=== PATIENT | male | born 1995 | race Caucasian/White ===

== ENCOUNTER 2017-10-26 19:11 | Emergency (ER) | payer OTHER, SELFPAY ==
[2017-10-26 19:13] VITALS: BP 123/71; PULSE 112; RESP 15; TEMP 37.1; O2SAT 98; BMI 26.7
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
[2017-10-26] MEDS: Diphth,Pertuss(Acell),Tet Vac 0.5 ML Vial IM (19:47)
[2017-10-26] MEDS: HYDROcodone Bitartrate/Apap 5/325 Tablet PO (19:53)
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
[2017-10-26] MEDS: Bupivacaine Mpf 0.5% 30 ML VIAL INFILT (22:06)
[2017-10-26] MEDS: Clindamycin HCl 150 MG Capsule 300 MG PO (22:07)
[2017-10-26 22:10] VITALS: BP 133/67; PULSE 79; O2SAT 97
== END 2017-10-26 22:11 | disposition home or self-care (01) ==
LOC: ED 20:09
PROVIDERS: Emergency Provider Emergency Medicine; Family Provider Internal Medicine; PCP Internal Medicine
DX: S61.511A Laceration without foreign body of right wrist, initial encounter (principal); S61.212A Laceration without foreign body of right middle finger without damage to nail, initial encounter; S61.214A Laceration without foreign body of right ring finger without damage to nail, initial encounter; S61.001A Unspecified open wound of right thumb without damage to nail, initial encounter; Z23 Encounter for immunization; W22.8XXA Striking against or struck by other objects, initial encounter; Y93.89 Activity, other specified; Y92.89 Other specified places as the place of occurrence of the external cause; Y99.8 Other external cause status
CPT/HCPCS: 12002; 73110; 73130; 90715; 99283

== ENCOUNTER → 2017-10-29 13:39 | Outpatient (CLI) | payer OTHER, SELFPAY ==
--- NOTE | 2017-10-29 13:42 | US_ITS ---
STUDY: ULTRASOUND BREAST - RIGHT REASON FOR EXAM: Male, 21 years old. Palpable lump in the right breast. TECHNIQUE: Axial and longitudinal images of the RIGHT breast were performed with a high resolution ultrasound transducer. COMPARISON: None. FINDINGS: RIGHT Breast: The retroareolar region was examined by ultrasound. There is fibroglandular tissue. No solid or cystic mass lesion is seen. US/Breast Limited Unilateral IMPRESSION: Fibroglandular tissue suggestive of gynecomastia. ASSESSMENT CATEGORY: BIRADS Category 2: Benign. A letter regarding these results will be sent to the patient by the facility within 30 days. Electronically Signed: Ryan Cordova MD at 14:09 EDT Tel [phone], Service support ,
== END ==
PROVIDERS: Family Provider Internal Medicine; PCP Internal Medicine; Visit Provider Internal Medicine
DX: N63.10 Unspecified lump in the right breast, unspecified quadrant (principal)
CPT/HCPCS: 76642

== ENCOUNTER 2018-04-29 14:56 | Emergency (ER) | payer OTHER, SELFPAY ==
[2018-04-29 14:58] VITALS: BP 144/86; PULSE 98; RESP 18; TEMP 37.1; O2SAT 98; BMI 27.3
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
[2018-04-29 16:16] VITALS: PULSE 85; RESP 14; O2SAT 99
--- OUTSIDE RECORDS SUMMARY | 2018-06-24 22:08 | XMS RPT_ITS ---
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 EXPLORATION RIGHT WRIST LACERATION, REPAIR EXTENSOR CARPI ULNARIS (Right) - REG-BLOCK/AAA Subjective CHIEF COMPLAINT: fix tendon HPI: This is a 21 year old male who presents for repair of extensor carpi ulnaris tendon. Patient was having an argument with his girlfriend on and punched a mirror, sustained lacerations and tendon injury. Presents today for repair of tendon injury and exploration of laceration. PROBLEMS WITH ANESTHESIA: no history of adverse anesthetic event FAMILY PROBLEMS WITH ANESTHESIA: no history of adverse anesthetic event METS: Climb a flight of stairs or walk up a hill (5.50 METs) FUNCTIONAL STATUS: Independent PAST MEDICAL HISTORY Diagnosis Date - Acne 10/16/2011 mostly resolved. - ADHD (attention deficit hyperactivity disorder) - Concussion 01/[address] needed - Galactorrhea 07/17/2015 - PMH - PAST MEDICAL HISTORY OF resolved. Fx. left humerus 1997 - PMH - PAST MEDICAL HISTORY OF resolved. To [facility] main [facility] for knocked knees in 1995; has grown out ot it - PMH - PAST MEDICAL HISTORY OF Color Vision - Normal - Splenomegaly 07/17/2015 secondary to mono; resolved PAST SURGICAL HISTORY Procedure Laterality Date - CIRCUMCISION,CLAMP, Circumcision, - PAST SURGICAL HISTORY OF 08/2011 repair right labrum - REMOVE TONSILS/ADENOIDS,<12 Y/O T/A (under age 11 years) FAMILY HISTORY Problem Relation Age of Onset - Esophageal Varicies [OTHER] Maternal Grandfather - Arthritis Maternal Grandmother - Heart Paternal Grandmother murmur - Hypertension Paternal Grandmother - Colon Cancer Paternal Grandfather - Hypertension Paternal Grandfather - Heart Paternal Grandfather MS - SIDS [OTHER] Sister Social History Substance Use Topics - Smoking status: Never Smoker - Smokeless tobacco: Current User - Alcohol use 7.5 oz/week 5 Cans of Beer (12oz) per week Prior to Admission medications as of 11/03/17 1101 Medication Sig Last Dose Taking CLINDAMYCIN HCL ORAL Take 150 mg by mouth four times daily. Yes dexmethylphenidate (FOCALIN XR) 25 mg MP50 Capsule ER Take 1 capsule by mouth every morning. dexmethylphenidate (FOCALIN XR) 25 mg MP50 Capsule ER Take 1 capsule by mouth every morning. dexmethylphenidate (FOCALIN XR) 25 mg MP50 Capsule ER Take 1 capsule by mouth every morning. dexmethylphenidate HCl (FOCALIN) 5 mg tablet take 1 tab daily between 2-4pm as needed dexmethylphenidate HCl (FOCALIN) 5 mg tablet take 1 tab daily between 2-4pm as needed dexmethylphenidate HCl (FOCALIN) 5 mg tablet take 1 tab daily between 2-4pm as needed ALLERGIES Allergen Reactions - Penicillins Rash COMPLETE REVIEW OF SYSTEMS: GENERAL: No weight loss, malaise or fevers RESPIRATORY: Negative for cough, hemoptysis, wheezing, COPD, dyspnea or shortness of breath CARDIOVASCULAR: Negative for chest pain, leg swelling, hypertension, CHF or palpitations GI: No nausea, vomiting, or diarrhea : No history of dysuria, frequency or incontinence MUSCULOSKELETAL: Negative for joint pain or swelling, back pain or muscle pain PSYCH: Negative for sleep disturbance, mood disorder and recent psychosocial stressors ENDOCRINE: Negative for cold or heat intolerance, polyuria, polydipsia and goiter NEURO: Positive for ADHD; No history of headaches, syncope, paralysis, seizures or tremors Negative for stroke, seizures or headaches. Objective PHYSICAL EXAM: MENTAL STATUS: alert, oriented to person, place and time HEENT: Normocephalic/atraumatic, no lymphadenopathy, thyroid non-tender, without palpable masses/nodules or enlargement LUNGS: Lungs clear to auscultation, Good diaphragmatic excursion CARDIAC: Normal S1 and S2; no rubs, murmurs, or gallops ABDOMEN: Abdomen soft, non-tender, BS normal, No masses or organomegaly EXTREMITIES: Dressing intact on right forearm, fingers pink and warm; no pedal edema 11/03/17 1026 BP: 127/70 Pulse: 62 Resp: 16 Temp: (!) 35.8 ?C (96.4 ?F) TempSrc: Temporal Artery SpO2: 100% Weight: 90.7 kg (200 lb) Height: 185.4 cm (6' 1) Body mass index is 26.39 kg/m?. SIGNATURE: Noemi Reed PA-C PATIENT NAME: Princess Edwards DATE: November 03, 2017 TIME: 11:14 AM PAGER/CONTACT #: PT ED Observed: 11/03/2017 Status: COMPLETED Source: BLUNT 10:33 AM CLINIC OTHER CAMPUS REPOSITORY [facility] ID: [id number] Author: Heena Aguirre RN Service: (none) Author Type: Registered Nurse Type: Patient Education Filed: 11/03/2017 10:33 AM Note Text: ONGOING PATIENT EDUCATION TOPIC Reinforced: pain scale Patient Name: Princess Edwards Patient Location: [facility] Readiness To Learn Motivation To Learn: Eager Instruction Provided To: Patient Learning Response Patient/Family Response: Verbalizes understanding of: PAIN MANAGEMENT-Effective strategies to manage pain in addition to pain medication Method of Instruction: Individual instruction Follow-Up Plan: Complete - No need for follow-up Electronically signed by: Heena Aguirre RN ANES PREOP Observed: 11/03/2017 Status: COMPLETED Source: [facility]T 10:27 AM CLINIC OTHER CAMPUS REPOSITORY [facility] ID: [id number] Author: Yecenia Torres Service: Anesthesiology Author Type: Physician Type: Anesthesia PreOp Filed: 11/03/2017 12:06 PM Note Text: ANESTHESIOLOGY DAY OF SURGERY NOTE SERVICE DATE: 11/03/2017 SERVICE TIME: 10:28 AM : 1995 Procedure(s) (LRB): EXPLORATION RIGHT WRIST LACERATION, REPAIR EXTENSOR CARPI ULNARIS (Right) Surgeon(s): Carlito Mcmahon Estimated body mass index is 26.39 kg/m? as calculated from the following: Height as of this encounter: 185.4 cm (6' 1). Weight as of this encounter: 90.7 kg (200 lb). Most recent hematocrit and potassium results: Hematocrit 45.0 07/17/2015 21yo male with galactorrhea, splenomegaly, tobacco abuse ANES DOS/PREOP NOTE: Vitals: @MVITALS@ ACTIVE PROBLEM LIST Adhd (Attention Deficit Hyperactivity Disorder) Splenomegaly Galactorrhea Extensor Tendon Laceration of Right Wrist With Open Wound Laceration of Right Wrist With Tendon Involvement PAST MEDICAL HISTORY Diagnosis Date - Acne 10/16/2011 mostly resolved. - ADHD (attention deficit hyperactivity disorder) - Concussion 01/[address] - Galactorrhea 07/17/2015 - PMH - PAST MEDICAL HISTORY OF resolved. Fx. left humerus 1997 - PMH - PAST MEDICAL HISTORY OF resolved. To [facility] for knocked knees in 1995; has grown out ot it - PMH - PAST MEDICAL HISTORY OF Color Vision - Normal - Splenomegaly 07/17/2015 PAST SURGICAL HISTORY Procedure Laterality Date - CIRCUMCISION,CLAMP, Circumcision, - PAST SURGICAL HISTORY OF 08/2011 repair right labrum - REMOVE TONSILS/ADENOIDS,<12 Y/O T/A (under age 11 years) FAMILY HISTORY Problem Relation Age of Onset - Esophageal Varicies [OTHER] Maternal Grandfather - Arthritis Maternal Grandmother - Heart Paternal Grandmother murmur - Hypertension Paternal Grandmother - Colon Cancer Paternal Grandfather - Hypertension Paternal Grandfather - Heart Paternal Grandfather MS - SIDS [OTHER] Sister Social History: Social History Substance Use Topics - Smoking status: Current Some Day Smoker - Smokeless tobacco: Current User - Alcohol use No No current facility-administered medications on file prior to encounter. Current Outpatient Prescriptions on File Prior to Encounter: dexmethylphenidate (FOCALIN XR) 25 mg MP50 Capsule ER Take 1 capsule by mouth every morning. dexmethylphenidate (FOCALIN XR) 25 mg MP50 Capsule ER Take 1 capsule by mouth every morning. dexmethylphenidate (FOCALIN XR) 25 mg MP50 Capsule ER Take 1 capsule by mouth every morning. dexmethylphenidate HCl (FOCALIN) 5 mg tablet take 1 tab daily between 2-4pm as needed dexmethylphenidate HCl (FOCALIN) 5 mg tablet take 1 tab daily between 2-4pm as needed dexmethylphenidate HCl (FOCALIN) 5 mg tablet take 1 tab daily between 2-4pm as needed Current Facility-Administered Medications: lidocaine 10 mg/mL (1 %) 1-2 mg injection (XYLOCAINE) 0.1- 0.2 mL INTRADERMAL PRN Carlito Esterle lactated ringers infusion 5-30 mL/hr INTRAVENOUS CONTINUOUS Carlito Mcmahon clindamycin 900 mg in D5W 50 mL (CLEOCIN) 900 mg INTRAVENOUS Pre-Op Once Carlito Esterle Allergies: ALLERGIES Allergen Reactions - Penicillins Rash DOS EXAM: Adequate NPO status: Yes Anesthetic risks, benefits, alternatives, personnel and consent discussed: Yes Patient agrees to proceed: Yes Previous Anesthesia: No history of adverse event. Airway Assessment: MP 1; Neck ROM: Full ROM without neurologic symptoms; Airway Evaluation: No significant abnormalities Symptoms of Sleep Apnea: None Dentition: Teeth intact Additional Physical Exam: Lungs: Patient health status unchanged since recent history and physical. See history and physical for exam findings. Cardiac: Patient health status unchanged since recent history and physical. See history and physical for exam findings. Additional Pertinent Findings: N/A Blood Products: Not anticipated for this procedure. Anesthetic Plan: MAC with Sedation and Block with Sedation Pain Management Plan: Parenteral or Oral and Peripheral Nerve Block ASA Class: 2 Other Medical Problems: None Chronic Beta Mary Kay medication administered within 24 hours: N/A I have interviewed and examined the patient. I have reviewed the medical record and/or the pre-anesthesia evaluation, pertinent labs, and test results. Significant changes in the patient's condition since the History and Physical, not otherwise documented in primary service progress notes: No This contains updated information obtained within 48 hours of Surgery/Procedure. SIGNATURE: Yecenia Torres MD PATIENT NAME: Princess Edwards DATE: November 03, 2017 TIME: 10:27 AM CSN: [id number] OPERATIVE NO Observed: 11/03/2017 Status: COMPLETED Source: BLUNT 12:00 AM CLINIC OTHER CAMPUS REPOSITORY [facility] ID: [id number] Author: Carlito Mcmahon Service: Hand Surgery Author Type: Physician Type: Operative Report Filed: 11/04/2017 3:44 PM Note Text: [facility] - Operative Report - ASC SURGEON: Carlito Mcmahon MD PATIENT NAME: PRINCESS EDWARDS CSN: [id number] DATE OF SURGERY: 11/03/2017 DATE OF : 1995 SEX/AGE: M/21 PATIENT TYPE: A HOSP SVC: OROR LOCATION: [facility] DATE OF SURGERY: 11/03/2017 SURGEON: Carlito Mcmahon MD PREOPERATIVE DIAGNOSIS: Laceration, right wrist with tendon involvement. POSTOPERATIVE DIAGNOSIS: Laceration, right wrist with tendon involvement. OPERATION: 1. Exploration, right wrist laceration. 2. Partial excision, right extensor digiti quinti tendon laceration. 3. Intermediate wound closure, 5 cm. CATERPILLAR TRACTOR OPERATOR: Rob Maher MD PGY-1. ANESTHESIA: MAC plus right upper extremity block. FLUIDS: 1000 mL crystalloid. ANTIBIOTICS: 900 mg clindamycin IV preoperatively. ESTIMATED BLOOD LOSS: Minimal. LYN: None. SPECIMENS: None. COMPLICATIONS: None. TOTAL TOURNIQUET TIME: 18 minutes. CONDITION TO PACU: Stable. OPERATIVE INDICATIONS: The patient is a 21-year-old right- hand dominant male, who had sustained a complex laceration to the right wrist after punching a mirror on 10/26/2017. He was evaluated at an outside emergency department and I spoke with the physician evaluating him, who had explored the wound and felt that there was a complete laceration to the ECU tendon. I saw the patient in the office for consultation. He did have a laceration overlying the 5th and 6th compartments. All of his digital extensors were at least partially intact and given the description from his emergency department visit, I did have suspicion that he did in fact lacerated the extensor carpi ulnaris tendon. I recommended exploration of the traumatic wound with repair of damaged structures as indicated. The risks, benefits, alternatives, and limitations of the procedure were reviewed with the patient. He considered these carefully before electing to proceed. No guarantees were stated or implied. PROCEDURE IN DETAIL: The patient was identified in the preoperative holding area having a valid signed consent sheet. All his final questions were answered to his satisfaction. I personally marked the operative site, the right wrist in indelible ink. Prior to the procedure, the patient was seen by Department of Anesthesia staff and a right upper extremity block was placed under ultrasound guidance. This set up nicely and provided dense analgesia for the remainder of the procedure. A preoperative huddle was performed, and the patient was taken back to the operating room. He was transferred to the operative table. Anesthesia controlled the head, neck, and airway from this point forward. All bony prominences were well padded. A hand table was brought to the right and well- padded right upper extremity tourniquet was placed. Time-out was performed. All aspects of the surgical safety checklist were reviewed and agreed upon by all members of the surgical team. I clipped the hair on the dorsum of the hand and wrist and this was removed with an adhesive. I then performed a preliminary cleanse of the entire right upper extremity with isopropyl alcohol. This was then followed by a formal [facility] presurgical scrub in standard fashion. The right upper extremity was then exsanguinated with Esmarch bandage and tourniquet was inflated to 250 mmHg. He had a 5 cm complex wound, which was proximally based pentagon shape. The temporary sutures were removed and the instruments discarded. I then used dissecting scissors to reestablish the traumatic wound. There was noted to be a 2 centimeter transverse laceration within the wrist retinaculum involving both the 5th and 6th dorsal compartments. There was a 10% to 15% laceration of the substance of the EDQ tendon. This was not amenable to a primary repair and I elected to simply excise the free ends both proximally and distally back to a stable base. This was done sharply with a [place] blade and prevented any catching or fraying from propagating. I then inspected the extensor carpi ulnaris tendon. There was only a superficial wound to the peritenon and the tendon substance itself showed no evidence of laceration. The tendon was retrieved and inspected over a course of several centimeters, both proximally and distally, and there was no evidence of further injury. At this point, the wound was thoroughly irrigated with normal saline. The wound edges were sharply debrided as was the subcutaneous tissue, and I then performed an intermediate wound closure over the 5 cm of linear length. The tourniquet was then let down. There was no significant bleeding. Some gentle pressure was held and full hemostasis was achieved. Xeroform dressing was placed over the traumatic wound as well as over wounds at the third MCP joint as well as a superficial wound to the thumb. Soft dressings were placed to all of the wounds to allow for early active motion. The patient was then awakened from sedation without difficulty, transferred to recovery bed, and taken to the PACU in stable condition having tolerated the procedure well. Carlito Mcmahon MD Orthopedic Surgery AE:modl /[id number] BREAST LIMITED Observed: 10/29/2017 Status: F Source: [place] [facility] 1:43 PM [facility] REPOSITORY [facility] Imaging Services [address] [place] [id number] Breast Limited Unilateral MR#: [id number] Acct: [id number] Name: PRINCESS EDWARDS Rep #: [id number] : 1995 M 21 From: Ryan Cordova MD PCP: Yelitza Varela DO Status: REG CLI Study: Breast Limited Unilateral Date of Exam: 10/29/17 Exam# [id number] Ordering Dr: Yelitza Varela DO STUDY: ULTRASOUND BREAST - RIGHT REASON FOR EXAM: Male, 21 years old. Palpable lump in the right breast. TECHNIQUE: Axial and longitudinal images of the RIGHT breast were performed with a high resolution ultrasound transducer. COMPARISON: None. FINDINGS: RIGHT Breast: The retroareolar region was examined by ultrasound. There is fibroglandular tissue. No solid or cystic mass lesion is seen. US/Breast Limited Unilateral IMPRESSION: Fibroglandular tissue suggestive of gynecomastia. ASSESSMENT CATEGORY: BIRADS Category 2: Benign. A letter regarding these results will be sent to the patient by the facility within 30 days. Electronically Signed: Ryan Cordova MD at 14:09 EDT Tel [phone], Service support , CC: Yelitza Varela DO Career Services Representative: Signed PROGRESS Observed: 10/29/2017 Status: COMPLETED Source: [facility]T 9:57 AM CLINIC OTHER CAMPUS REPOSITORY [facility] ID: [id number] Author: Carlito Mcmahon Service: (none) Author Type: Physician Type: Progress Notes Filed: 11/02/2017 7:27 AM Note Text: Patient presents with: Musculoskeletal Problem: R HAND RHD HISTORY OF PRESENT ILLNESS Princess Edwards is a 21 year old male right hand dominant who presents for evaluation of a laceration at the right wrist. Patient is here today with his father. He sustained the injury on 10/18/2017 when he had a mirror and was cut on the broken glass. He was evaluated at the [facility] emergency department and I discussed the injury with the treating physician. The open wound had been explored and there was a clear tendon laceration. The wound was thoroughly irrigated and loosely closed. He was splinted and follows up today to discuss further treatment recommendations. He is an only a mild amount of pain at this point. He denies any numbness or tingling. He has no prior history of trauma or surgery to the right hand and wrist and has no other complaints on today's visit. 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 Smoking status: Tobacco Use: Yes REVIEW OF SYSTEMS Cardiovascular ROS:No history of chest pain, palpitation, orthopnea, cyanosis, pedal edema Neurologic ROS: Numbness and Tingling:No PAST MEDICAL HISTORY Past medical, surgical, family, and social histories have been reviewed and updated with the patient today and are located elsewhere in the medical record. Diabetes:No ALLERGIES ALLERGIES Allergen Reactions - Penicillins Rash PHYSICAL EXAMINATION Resp 17 Ht 182.9 cm (6') Wt 96.6 kg (213 lb) BMI 28.89 kg/m? Body mass index is 28.89 kg/m?. General Appearance Well appearing, alert, in no acute distress, well-hydrated, well nourished. Alert and oriented times: 3 Normal affect times: 3 Appears stated age and well nourished Gait and station:normal Right Upper Extremity Exam: Inspection of the right hand shows some mild swelling Multiple small abrasions dorsally There is a V-shaped laceration overlying the ulnar aspect of the wrist in the region of the sixth dorsal compartment No active bleeding. No wound drainage. Skin: WNL Tenderness to palpation: Some mild tenderness along the traumatic wound ROM: Full composite fist Intact extension of the small finger Extension of the wrist shows a radial deviation type posture and palpation shows an apparent void at the region of the ECU Instability: none Sensation:Normal sensation median, radial, ulnar nerve distribution Atrophy: None 2+ radial pulse REVIEW OF STUDIES X-rays 10/29/17 3 views of the right hand show no acute fracture dislocation. Overall alignment is within normal limits. There is some soft tissue swelling along the ulnar aspect of the hand and wrist. No foreign bodies noted within the soft tissues. ASSESSMENT AND PLAN ASSESSMENT/PLAN: 1. Extensor tendon laceration of right wrist with open wound, initial encounter - ICD9: 881.22, ICD10: S66.921A, S61.501A - XR HAND GENERAL 3V PA/LAT/OBL RT - CONSULT TO [facility]ULLER I discussed the diagnosis at length with the patient and his father. Based on his exam and the clinical report from the emergency department, the patient likely has lacerated his extensor carpi ulnaris tendon. It is also possible that the EDQ has been lacerated and his extension remains through an EDC slip. I recommended exploration of his traumatic wounds and repair of any tendon lacerations. The risks, benefits, alternatives and limitations of the procedure were reviewed. I also counseled the patient that he would need to comply with immobilization and rehabilitation after the surgery and he demonstrated good understanding of the above. A consultation was placed occupational therapy. We'll plan on outpatient surgery next week. All his questions were answered to his satisfaction. Carlito Mcmahon MD Patient educated on risks, benefits, alternatives and limitations of surgery. Patient instructed to call the office with questions or concerns. PROGRESS Observed: 10/29/2017 Status: COMPLETED Source: [facility] 9:25 AM [facility] REPOSITORY [facility] ID: [id number] Author: Shahriar Jeong (Tech) Service: (none) Author Type: Guest Services Associate Type: Progress Notes Filed: 11/02/2017 7:27 AM Note Text: REVIEW OF SYSTEMS: GENERAL: NO FATIGUE OR MALAISE PAIN: Pain HAND CARDIOVASCULAR: Negative for chest pain, leg swelling and palpations. MSK: Negative for joint pain, swelling, back pain, muscle pain. SKIN: Negative for lesions, rash, itching, metal sensitivity NEURO: Negative for seizure, trauma, numbness/tingling of extremities. ENDOCRINE: Negative for Diabetes Type 1 and Type 2 HEMATOLOGY: Negative for excessive bleeding, clots, bleeding disorders. CNOV Observed: 10/29/2017 Status: COMPLETED Source: [facility] 9:00 AM [facility] REPOSITORY Office Visit (AGPOB3) PRINCESS EDWARDS ([id number]) 1995 M Date Time Provider Department 10/29/17 9:00 AM CARLITO MCMAHON [id number] During your visit today, we recorded the following information about you: Respiration Weight Height 17/minute 96.6 kg 1.829 m Tarun Hernandez 11/02/2017 7:27 AM Signed REVIEW OF SYSTEMS: GENERAL: NO FATIGUE OR MALAISE PAIN: Pain HAND CARDIOVASCULAR: Negative for chest pain, leg swelling and palpations. MSK: Negative for joint pain, swelling, back pain, muscle pain. SKIN: Negative for lesions, rash, itching, metal sensitivity NEURO: Negative for seizure, trauma, numbness/tingling of extremities. ENDOCRINE: Negative for Diabetes Type 1 and Type 2 HEMATOLOGY: Negative for excessive bleeding, clots, bleeding disorders. Carlito Mcmahon MD 11/02/2017 7:27 AM Signed Patient presents with: Musculoskeletal Problem: R HAND RHD HISTORY OF PRESENT ILLNESS Princess Edwards is a 21 year old male right hand dominant who presents for evaluation of a laceration at the right wrist. Patient is here today with his father. He sustained the injury on 10/18/2017 when he had a mirror and was cut on the broken glass. He was evaluated at the [facility] emergency department and I discussed the injury with the treating physician. The open wound had been explored and there was a clear tendon laceration. The wound was thoroughly irrigated and loosely closed. He was splinted and follows up today to discuss further treatment recommendations. He is an only a mild amount of pain at this point. He denies any numbness or tingling. He has no prior history of trauma or surgery to the right hand and wrist and has no other complaints on today's visit. 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 Smoking status: Tobacco Use: Yes REVIEW OF SYSTEMS Cardiovascular ROS:No history of chest pain, palpitation, orthopnea, cyanosis, pedal edema Neurologic ROS: Numbness and Tingling:No PAST MEDICAL HISTORY Past medical, surgical, family, and social histories have been reviewed and updated with the patient today and are located elsewhere in the medical record. Diabetes:No ALLERGIES ALLERGIES Allergen Reactions - Penicillins Rash PHYSICAL EXAMINATION Resp 17 Ht 182.9 cm (6') Wt 96.6 kg (213 lb) BMI 28.89 kg/m? Body mass index is 28.89 kg/m?. General Appearance Well appearing, alert, in no acute distress, well-hydrated, well nourished. Alert and oriented times: 3 Normal affect times: 3 Appears stated age and well nourished Gait and station:normal Right Upper Extremity Exam: Inspection of the right hand shows some mild swelling Multiple small abrasions dorsally There is a V-shaped laceration overlying the ulnar aspect of the wrist in the region of the sixth dorsal compartment No active bleeding. No wound drainage. Skin: WNL Tenderness to palpation: Some mild tenderness along the traumatic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
== END 2018-04-29 16:16 | disposition home or self-care (01) ==
LOC: ED 15:55
PROVIDERS: Emergency Provider Emergency Medicine; Family Provider Internal Medicine; PCP Internal Medicine
DX: S06.0X9A Concussion with loss of consciousness of unspecified duration, initial encounter (principal); S16.1XXA Strain of muscle, fascia and tendon at neck level, initial encounter; Z72.0 Tobacco use; V47.0XXA Car driver injured in collision with fixed or stationary object in nontraffic accident, initial encounter; Y93.I9 Activity, other involving external motion; Y92.488 Other paved roadways as the place of occurrence of the external cause; Y99.8 Other external cause status
CPT/HCPCS: 70450; 72125; 99282

== ENCOUNTER 2019-12-23 18:58 | Emergency (ER) | payer OTHER, SELFPAY ==
[2019-06-02 14:00] VITALS: BMI 27.3
[2019-12-23 19:00] VITALS: BP 127/76; PULSE 113; RESP 16; TEMP 36.7; O2SAT 96; BMI 25.7
--- NOTE | 2019-12-23 19:12 | ED.DCSUM_ITS ---
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 Last tetanus was about a year ago. Past Medical History - Allergies and Home Meds Allergies/Adverse Reactions: Allergies Penicillins Allergy (Verified 12/23/19 19:00) Rash Primary Care Physician: Yelitza Varela DO [Primary Care Provider] - Past Medical History: None Lives: With Family Smoking Status: Current every day smoker Review of Systems Eyes: Denies: Visual changes - bilaterally, Diplopia ENT: Reports: - - Nose wound. No other facial pain.. Denies: Rhinorrhea Respiratory: Denies: Dyspnea, Cough, Dyspnea on exertion Gastrointestinal: Denies: Nausea, Vomiting Skin: Reports: Wounds. Denies: Rash Neurological: Denies: Headache, Weakness, Numbness Physical Exam Vital Signs/Narrative: Vital Signs Temp Pulse Resp BP Pulse Ox 12/23/19 19:00 98.1 F 113 H 16 127/76 H 96 Inital Vital Signs reviewed: Yes General: Well nourished, Well developed, No Acute Distress Head: Normocephalic, Atraumatic Eyes: Perrl, EOMI ENT: Moist mucous membranes, No rhinorrhea, - - Full-thickness laceration to the distal aspect of the nose, the left side, it comes down to the introitus of the nostril but does not involve the mucosal surface. Minimal bleeding. No cartilage is visible in the wound, there is no tissue loss, and it is not vuroywl-cvy-lbdmprl in any area. No deformities or nasal bone tenderness. No other areas of facial injury. Neck: Supple, Nontender Skin: Normal color, No rash, Trauma - 1.5 cm full-thickness clean appearing laceration linear to the left side of the nose. See above. Neurological: Alert, Oriented x3, Cranial nerves II-XII grossly intact, Normal Strength, Normal Sensation, Normal Gait Psychological: Normal affect, Normal Mood Diagnostic/Tx/Re-eval - Medical Decision Making After applying let to the area for 30 minutes, and reexamining in a bloodless field, it appears clean and relatively superficial, and able to be easily oppo sed and repaired with skin glue. The patient was fine with that. Given appropriate discharge instructions. Procedures - Lacerations Left nose Length: 1.5 cm Depth: Skin Shape: Linear Prep: Sterile Conditions Laceration repair: Dermabond, Local - LET ED Disposition - Plan for ED Patient: Disposition: Home or Assisted Living Diagnosis: Nasal laceration Instructions: ED Laceration Facial Skin Glue Referrals: Yelitza Varela DO [Primary Care Provider] - As Needed
[2019-12-23] MEDS: Lidocaine/Epi/Tetracaine 50 ML 1 APPLIC TOPICAL (19:28)
[2019-12-23 19:31] VITALS: RESP 16
== END 2019-12-23 20:42 | disposition home or self-care (01) ==
PROVIDERS: Emergency Provider Emergency Medicine; PCP Internal Medicine
DX: S01.21XA Laceration without foreign body of nose, initial encounter (principal); F17.200 Nicotine dependence, unspecified, uncomplicated; W29.8XXA Contact with other powered hand tools and household machinery, initial encounter; Y93.89 Activity, other specified; Y92.89 Other specified places as the place of occurrence of the external cause; Y99.8 Other external cause status
CPT/HCPCS: 12011; 99282

== ENCOUNTER → 2020-09-04 15:01 | Outpatient (CLI) | payer OTHER, SELFPAY ==
[2020-09-04 18:46] LABS: CRP < 2.90 mg/L (0.0-3.0); T4 Total, Thyroxin 7.8 ug/dL (4.5-12.1); Thyroid Stim Hormone (TSH) 1.05 uIU/mL (0.358-3.74)
[2020-09-06 16:08] LABS: Endomysial Antibody IgA Negative (Negative)
[2020-09-06 18:43] LABS: Immunoglobulin A 160 mg/dL (90-386); t-Transglutaminase IgA <2 U/mL (0-3)
== END ==
PROVIDERS: PCP Internal Medicine; Referring Provider Internal Medicine Gastroenterology; Visit Provider Internal Medicine Gastroenterology
DX: R19.7 Diarrhea, unspecified (principal)
CPT/HCPCS: 36415; 82784; 83516; 84436; 84443; 86140; 86255

== ENCOUNTER 2021-03-23 02:52 | Emergency (ER) | payer SELFPAY ==
[2021-03-23 02:52] VITALS: BP 157/102; PULSE 105; RESP 16; TEMP 36.2; O2SAT 98; BMI 30.5
--- NOTE | 2021-03-23 03:51 | ED.VIS.LOWEX ---
HPI History of Present Illness Chief Complaint: Laceration Narrative Narrative: Patient presenting for evaluation secondary to a chainsaw injury. Patient states that he had a new chainsaw, was making cuts with it, and suffered a laceration over the anterior portion of his right thigh. He denies any numbness or weakness. Tetanus status is up-to-date within the last couple of months. Patient denies any history of immunosuppression easy bruising or easy bleeding. Pain is mild to moderate worse with palpation and movement. Bleeding was controlled with pressure. [facility] Medical History Chronic neck and back pain Severe headache Shortness of breath Home Medications duloxetine 60 mg PO DAILY 12/23/19 [History Last Taken Unknown] Allergy/AdvReac Type Severity Reaction Status Date / Time Penicillins Allergy Rash Verified 03/23/21 02:55 Surgical History S/P tonsillectomy Status post labral repair of shoulder Social History Smoking Status: Current every day smoker tobacco type: cigarettes alcohol intake: current alcohol intake frequency: a few times a month ROS ROS ED Constitutional Constitutional ED: Denies fever(s) Respiratory/Chest Respiratory/Chest: Denies cough or dyspnea Musculoskeletal Musculoskeletal: Denies myalgias Integumentary Reports other Details: Laceration Neurologic Neurologic: Denies paresthesias or weakness Hematologic/Lymphatic Hematologic/Lymphatic: Denies easy bleeding or easy bruising EXAM Physical Exam Const Vital Signs: 03/23/21 02:52 Temperature 97.2 F L Temperature Source Oral Pulse Rate 105 H Respiratory Rate 16 Blood Pressure 157/102 H Blood Pressure Mean 120 Pulse Ox 98 Oxygen Delivery Method Room Air Positive well nourished and well developed General Appearance ED: well developed HEENT normocephalic and atraumatic Neck full ROM Resp normal respiratory effort Cardio regular rate and regular rhythm Cardio Narrative: 2+ PT pulses bilaterally symmetric Extremity Extremity Narrative: Examination of the patient's right thigh shows a very large laceration that goes through the skin, fat, and just through the muscle fascia exposing the patient's quadriceps muscle but not into the quadriceps muscle itself. Laceration measures approximately 12 cm in total length and is linear. Normal flexion and extension at the knee and hip normal distal sensation and pulses. Neuro oriented x3 Sensorium / Orientation: alert Psych mental status grossly normal MDM MDM MDM Narrative Medical decision making narrative: Patient presented secondary to a thigh laceration. Surprisingly this was a very clean cut despite the fact that it was performed with a chain saw. I did not identify any foreign materials with extensive cleansing and exploration. It was closed as noted in the procedure note. Patient will follow up with primary care for suture removal in about 10 days. Patient was discharged in improved condition. Procedures Lacerations Thigh laceration: Length: 12 ft Depth: Fascia Shape: Linear Prep: Shsage-Clens Laceration repair: Irrigated, Lidocaine with epi, Skin sutures, Subcutaneous sutures and Wound explored Irrigated (ml): 750 Number of Sutures/Simeon: 26 Suture Information: Vicryl and Ethilon Comment: Wound was anesthetized using a total of 10 cc of lidocaine with epinephrine. It was then scrubbed with Ashley-Kody, and was copiously irrigated under pressure. It was explored through full range of motion I was not able to identify any sort of foreign materials the wound goes down to to the level of the muscle but does not actually involve the muscle itself, only went through the fascia of the muscle. Wound was then addressed for suture repair. A total of number five 4-0 Vicryl sutures were used to close the deep layer of the wound. Then 3-0 nylon suture was utilized. A total of #20 1 running sutures were placed in the skin with good skin closure. Patient tolerated this well. Discharge Plan Triage Chief Complaint: Laceration ED Provider: Cj Pepper Dx/Rx/DC Orders Clinical Impression: Deep laceration of thigh Prescriptions: No Action duloxetine 30 MG capsule,delayed release(DR/EC) 60 mg PO DAILY RF: 0 Primary Care Provider: Yelitza Varela Referrals: Yelitza Varela DO [Primary Care Provider] - 10-14 Days suture removal Disposition Disposition: Home, Self Care
== END 2021-03-23 04:11 | disposition home or self-care (01) ==
PROVIDERS: Emergency Provider Emergency Medicine; PCP Internal Medicine
DX: S71.111A Laceration without foreign body, right thigh, initial encounter (principal); F17.210 Nicotine dependence, cigarettes, uncomplicated; W27.0XXA Contact with workbench tool, initial encounter; Y93.89 Activity, other specified; Y92.008 Other place in unspecified non-institutional (private) residence as the place of occurrence of the external cause; Y99.8 Other external cause status
CPT/HCPCS: 12034; 99283

== ENCOUNTER 2021-07-22 11:00 | Outpatient (CLI) | payer OTHER, SELFPAY ==
[2021-07-22 11:50] LABS: Erythrocyte Sedimentation Rate 6 mm/hr (0-20)
[2021-07-22 11:52] LABS: Absolute Neutrophil Count 4.7 X10^3/uL (2.0-7.7); Basophil# 0.04 X10^3/uL; Basophil% 0.6 % (0-1); Eosinophil# 0.21 X10^3/uL; Hematocrit 46.2 % (40-54); Hemoglobin 15.3 g/dL (13.0-16.5); Lymphocyte % 23.9 % (19-41); Mean Corp Hgb Conc 33.1 g/dL (32-36); Mean Corpuscular Hgb 29.9 pg (27.0-32.0); Mean Corpuscular Volume 90.4 fL (80-94); Mean Platelet Vol. 9.4 fl (6.2-12.0); Monocyte# 0.46 X10^3/uL; Monocyte% 6.5 % (0-10); NRBC Flagged by Analyzer 0 % (0-5); Neutrophil # 4.68 X10^3/uL (2.7-7.7); Neutrophil % 65.7 % (47-70); Platelet Count 264 K/mm3 (150-450); RBC Distribution Width CV 12.4 % (11.6-14.6); RBC Distribution Width SD 41.1 fl (35.1-43.9); Red Blood Count 5.11 M/mm3 (4.6-6.2); White Blood Count 7.1 K/mm3 (4.4-11.0)
[2021-07-22 12:07] LABS: Prothrombin Time (Protime)PT. 12.1 SECONDS (11.7-14.9)
[2021-07-22 12:17] LABS: AST(SGOT) 18 U/L (15-37); Alanine Aminotransfer ALT/SGPT 28 U/L (16-61); Albumin, Serum 4.1 g/dL (3.2-5.0); Alkaline Phosphatase 98 U/L (45-117); Anion Gap 5 (5-15); BUN 15 mg/dL (7-18); BUN/Creat Ratio 14.6 RATIO (10-20); CRP 2.93 mg/L (0.0-3.0); Calcium,Total 8.9 mg/dL (8.5-10.1); Chloride 104 mmol/L (98-107); Creatinine, Serum 1.03 mg/dL (0.70-1.30); EST Glomerular Filtration Rate 92 mL/min (>60); Est Glom Filt Rate - Afr Amer 112 mL/min (>60); Ferritin 334 ng/mL (26-388); Globulin 4.2 g/dL (2.2-4.2); Glucose 89 mg/dL (74-106); LDH 210 U/L (87-241); Potassium 3.8 mmol/L (3.5-5.1); Protein, Total 8.3 g/dL (6.4-8.2); Sodium Level 137 mmol/L (136-145)
[2021-07-22 13:04] LABS: Hemoglobin A1c 5.3 % (3.8-5.6)
[2021-07-22 15:58] LABS: HIV - WCH Non-Reactive (Nonreactive)
[2021-07-23 16:08] LABS: Anti-Centromere B Ab <0.2 AI (0.0-0.9); Anti-Chromatin <0.2 AI (0.0-0.9); Anti-Jo <0.2 AI (0.0-0.9); Anti-Scleroderma-70 AB <0.2 AI (0.0-0.9); RNP Ab 0.5 AI (0.0-0.9); SJOGREN'S Anti-SS-A test < 0.2 AI (0.0-0.9); SJOGREN'S Anti-SS-B test < 0.2 AI (0.0-0.9); Smith Ab <0.2 AI (0.0-0.9)
[2021-07-23 17:24] LABS: Anti-Mitochondrial AB 38.1 Units (0.0-20.0); Anti-dsDNA Ab <1 IU/mL (0-9)
[2021-07-31 18:08] LABS: Angiotensin Convert Enzyme 72 U/L (14-82); Ceruloplasmin 24.7 mg/dL (16.0-31.0); Cytoplasmic Ab (C-ANCA) <1:20 titer (Neg:<1:20); HEPATITIS B SURFACE AG Negative (Negative); Hepatitis A IgM Antibody Negative (Negative); Hepatitis B Core AB IgM Negative (Negative)
[2021-07-31 18:19] LABS: AFP, Tumor Marker 4.9 ng/mL (0.0-8.3); Anti-Smooth Muscle ABS 11 Units (0-19); Copper, Serum or Plasma 121 ug/dL (63-121); EBV Acute VCA IgM < 36.0 U/mL (0.0-35.9); EBV Early Antigen IgG <9.0 U/mL (0.0-8.9); EBV Nuclear Antigen IgG > 600.0 U/mL (0.0-17.9); EBV-VCA IgG 61.9 U/mL (0.0-17.9); HLA B27 Negative (.); Haptoglobin 157 mg/dL (17-317); Hep C Antibodies <0.1 s/co ratio (0.0-0.9); Perinuclear Ab (P-ANCA) <1:20 titer (Neg:<1:20)
== END 2021-07-22 23:59 | disposition home or self-care (01) ==
LOC: LAB 11:03
PROVIDERS: PCP Internal Medicine; Referring Provider Internal Medicine Gastroenterology; Visit Provider Internal Medicine Gastroenterology
DX: R16.0 Hepatomegaly, not elsewhere classified (principal); R16.1 Splenomegaly, not elsewhere classified; R19.7 Diarrhea, unspecified
CPT/HCPCS: 36415; 80053; 80074; 81374; 82105; 82164; 82390; 82525; 82728; 83010; 83036; 83516; 83615; 85025; 85610; 85652; 86140; 86225; 86235; 86256; 86663; 86664; 86665; 86703

== ENCOUNTER 2021-09-18 08:16 | Day surgery (SDC) | payer OTHER, SELFPAY ==
--- NOTE | 2021-09-18 08:24 | PCM.HP.BLA ---
History and Physical Date of Admission: 09/18/21 25 M who presents to the office today for abdominal pain and diarrhea. He presents today because of family history of liver disease. Symptoms today include diarrhea, stomach cramps, bloating and vomiting. Onset for the last 4-5 years with no progression. Presented to [facility] ED due to bloody emesis where he was told something tore during emesis r/t previously noted symptoms. He Denies aggravating and alleviating factors. Avoids milk, spicy foods, fried foods d/t reflux symptoms occurring daily with onset in the last year, OTC Prilosec is somewhat helpful. Reports a couple of beers three times a week and regular exercise. Has been seeing Dr. Yap for similar issues with last colonoscopy in the last year with no abnormal results reported to him. Dr. Yap diagnosed with IBS and went through celiac disease testing with normal results. No medications attempted. CT abd/pel 2.8.16 noted borderline hepatomegaly, moderate to severe splenomegaly; stomach full of gastric contents and contrast; moderate stool from cecum to rectum; umbilical hernia containing fat. ROS Const Constitutional: No anorexia, body ache, chills, excessive sweating, fatigue, fever(s), frequent falls, headache(s), decreased energy, malaise, night sweats, snoring, weakness, weight change, sleep problems, abnormal sleep pattern, change in appetite or other ENT ENT: No headache(s), difficulty swallowing, hoarseness or sore throat Resp Respiratory: No snoring Cardio Cardiology: No chest pain at rest or excessive sweating Gastro GI: No abdominal pain, belching, change in bowel habits, change in stool character, coffee ground emesis, constipation, difficulty swallowing, feeling full early, excessive flatus, incontinent of stools, Vomiting blood/hematemesis, Blood in stool, loose stools, Black,tarry stools, nausea/dyspepsia, pain with swallowing, vomiting or other Musc Musculoskeletal: No joint pain Skin Skin: No yellowing of the eye or itchy eyes Neuro Neurology: No weakness, frequent falls or headache(s) Psych Psychiatric: No abnormal sleep pattern and No change in appetite Endo Endocrine: No excessive sweating, fatigue or weight change Aller/Imm Allergy/Immunologic: No itchy eyes Pascual/Lymp Hematologic/Lymphatic: No easy bleeding or easy bruising Exam Const General: cooperative and comfortable Nutritional Appearance: average body habitus and well nourished [facility] Head: normal to inspection Ears: hearing grossly normal bilaterally Nose: external nose normal Face and sinus: normal facial exam Mouth: oral mucosae normal Throat: posterior oropharynx normal Eyes General: appearance normal, both eyes and all related structures Neck Neck: normal visual inspection Chest Chest palpation & inspection: normal inspection of the chest and normal palpation of entire chest wall Resp Effort & Inspection: normal respiratory effort Auscultation: Bilateral: Clear to Auscultation Cardio Palpation: normal PMI Rate: regular rate Rhythm: regular rhythm GI Inspection: normal to inspection Auscultation: normal bowel sounds Percussion: normal to percussion Palpation: no hepatosplenomegaly Skin General: no rashes or lesions noted Neuro General: patient alert Extrem General: normal to inspection Psych Affect: normal affect Quality Reporting Tobacco Screening ([facility] 138) Smoking Status: Current every day smoker Assessment and Plan Assessment and Plan (1) Irritable bowel syndrome: Plan - Dr. Su Friend, DO: We will do a biochemical work-up to see he has malabsorptive issues, protein-losing enteropathy, inflammatory bowel disease may be causing his diarrhea. We will also check to see if he has an accelerated gastrocolic reflex or if his previous splenomegaly or hepatomegaly are associated with his abdominal pain or diarrhea. (2) Diarrhea: Status: Acute Orders: Orders: EBV Early Antigen IgG Today EBV Acute Prof IgG / IgM Today HLA B27 Today HIV - [facility] Today Comprehensive Metabolic Profil Today CRP Today Ferritin Today LDH Today Hemoglobin A1c Today Abdomen/Pelvis WITH Contrast Today CBC W/Diff, Automated Today Erythrocyte Sed Rate Today Anti-Mitochondrial AB Today Hepatitis Panel Acute Today Angiotensin Convert Enzyme Today AFP, Tumor Marker Today ANCA Today Anti-Smooth Muscle ABS Today Ceruloplasmin Today Copper, Serum or Plasma Today Haptoglobin Today Abdomen Limited Today Elastography Parenchyma/Organ Today Prothrombin Time w/INR Today Plan - Dr. Su Friend, DO: We will get stool studies and biochemical work-up to see if there is anything that is causing him to have a secretory diarrhea. At this time this sounds more like a secretory diarrhea than osmotic diarrhea. (3) Splenomegaly: Status: Acute Orders: Orders: EBV Early Antigen IgG Today EBV Acute Prof IgG / IgM Today HLA B27 Today HIV - [facility] Today Comprehensive Metabolic Profil Today CRP Today Ferritin Today LDH Today Hemoglobin A1c Today Abdomen/Pelvis WITH Contrast Today CBC W/Diff, Automated Today Erythrocyte Sed Rate Today Anti-Mitochondrial AB Today Hepatitis Panel Acute Today Angiotensin Convert Enzyme Today AFP, Tumor Marker Today ANCA Today Anti-Smooth Muscle ABS Today Ceruloplasmin Today Copper, Serum or Plasma Today Haptoglobin Today Abdomen Limited Today Elastography Parenchyma/Organ Today Prothrombin Time w/INR Today Plan - Dr. Su Friend, DO: He says that he did have mononucleosis and that could explain his enlarged spleen. however we will check ITP and chronic causes of splenomegaly. If the patient discovered he has ITP refer to hematology (4) Hepatomegaly: Status: Acute Orders: Orders: EBV Early Antigen IgG Today EBV Acute Prof IgG / IgM Today HLA B27 Today HIV - [facility] Today Comprehensive Metabolic Profil Today CRP Today Ferritin Today LDH Today Hemoglobin A1c Today Abdomen/Pelvis WITH Contrast Today CBC W/Diff, Automated Today Erythrocyte Sed Rate Today Anti-Mitochondrial AB Today Hepatitis Panel Acute Today Angiotensin Convert Enzyme Today AFP, Tumor Marker Today ANCA Today Anti-Smooth Muscle ABS Today Ceruloplasmin Today Copper, Serum or Plasma Today Haptoglobin Today Abdomen Limited Today Elastography Parenchyma/Organ Today Prothrombin Time w/INR Today Plan - Dr. Su Friend, DO: Diagnosis for hepatomegaly will be amyloidosis as his brother has, sarcoidosis, hemochromatosis and nonalcoholic fatty liver disease. I have re-examined the patient. There are no clinical changes since date of exam.
[2021-09-18 08:41] VITALS: BP 125/76; PULSE 86; RESP 16; TEMP 36.6; O2SAT 100; BMI 30.7
[2021-09-18] MEDS: Lactated Ringers 1,000 ML 15 ML IV (08:44)
--- NOTE | 2021-09-18 09:15 | IMM_PTH ---
PATIENT: PRINCESS MIRZA LOC: EN U#:[id number] AGE/SX: 25/M ROOM: RE09/18/[address]: Dr. Georges Prince DO : 1995 BED: DIS: 09/18/2021 SPEC #: [id number] RECD: 09/19/21 08:50 STATUS: CAROLYN REQ #: [id number] JUDI: 09/18/21 09:[address]: Georges Prince DEPT: IMMUNOHISTOCHEMISTRY RECD BY: Deanna Robles ENTERED: 09/19/21 08:51 SP TYPE: IMMUNO OTHR DR: Dr. Yelitza Varela DO Tissues: A - Stomach, NOS Procedures: H Pylori (initial) PHYSICIAN & INSTITUTION [address] [address] SPECIMEN INFORMATION: Tissue Source: A - Pylorus Clinical Info: Irritable bowel syndrome, diarrhea, splenomegaly, hepatomegaly Specimen Number: [id number] CPT code: 21463 METHODOLOGY: Deparaffinized sections of prefer/formalin-fixed tissue or PAP/DQ stained slides are incubated with monoclonal/polyclonal antibodies/oligonucleotide probes. Localization is made via biotin free immunoperoxidase method. Appropriate controls are performed and reacted as expected. Results on target cell population are indicated in the following table: RESULTS: ANTIBODY / CLONE RESULT Block A H Pylori (polyclonal) negative These tests were developed and their performance characteristics determined by [facility]. They may not have been cleared or approved by the U.S. Food and Drug Administration. The FDA has determined that such clearance or approval is not necessary. The above immunohistochemical/dualISH markers are ordered and reviewed by the Pathologist. INTERPRETATION: Brigido Pylorus, biopsy: Negative for Helicobacter pylori organisms. AM:barbara 09/20/2021
--- NOTE | 2021-09-18 09:15 | EGD_PTH ---
PATIENT: PRINCESS MIRZA LOC: [facility] U#:[id number] AGE/SX: 25/M ROOM: RE09/18/[address]: Dr. Georges Prince DO : 1995 BED: DIS: 09/18/2021 SPEC #: [id number] RECD: 09/18/21 13:24 STATUS: CAROLYN REMariano #: [id number] JUDI: 09/18/21 09:[address]: Georges Prince DEPT: SURGICAL PATHOLOGY RECD BY: Ebony Shah ENTERED: 09/19/21 08:18 SP TYPE: EGD BIOPSY EFREM DR: Dr. Yelitza Varela DO Tissues: A - Pylorus B - Esophagus, NOS Procedures: Special Stain Group II Surgery Specimen Level IV Alcian Blue/PAS (control) HEADER OPERATION: EGD ([facility] [place]) PRE-OP DIAGNOSIS: Irritable bowel syndrome, diarrhea, splenomegaly, hepatomegaly TISSUE SUBMITTED: A ? Pylorus biopsy, B ? Distal esophagus biopsy MICROSCOPIC DIAGNOSIS A. Gastric pylorus, biopsy: Mild chronic inflammation. B. Distal esophagus, biopsy: Gastroesophageal junctional mucosa with mild chronic inflammation. Focal changes of reflux. No evidence of goblet cell metaplasia. See comment. AM:barbara 09/20/2021 COMMENT A. The results of immunohistochemistry for Helicobacter pylori will be reported separately ([id number]). B. Alcian blue/PAS stain with matched control supports the above diagnosis. MICROSCOPIC DESCRIPTION Slides are reviewed. GROSS DESCRIPTION A - Received in fixative is one container labeled with the patient's name and designated pylorus biopsy. The specimen consists of two irregular fragments of light willson soft tissue that in aggregate measure 0.3 x 0.2 x 0.1 cm. The specimen is totally submitted in one cassette. B - Received in fixative is one container labeled with the patient's name and designated distal esophagus biopsy. The specimen consists of multiple irregular fragments of light willson soft tissue that in aggregate measure 1 x 0.5 x 0.1 cm. The specimen is totally submitted in one cassette. / AM:barbara 09/19/2021 TC:3 CPT: 44915 x2, 03240
--- NOTE | 2021-09-18 09:43 | OP.EGD_ITS ---
Patient Name: Donny Edwards Procedure Date: 09/18/2021 9:17 AM Date of : 1995 Age: 25 Procedure: Upper GI endoscopy Indications: Epigastric abdominal pain, Heartburn Providers: Georges Prince DO Medicines: Sedation Required Anesthesia Staff Assistance Patient Profile: This is a 25 year old male. Refer to note in patient chart for documentation of history and physical. Patient has symptoms of chronic epigastric abdominal pain, chronic cough, chronic heartburn and chronic nausea. Complications: No immediate complications. Procedure: Pre-Anesthesia Assessment: - Prior to the procedure, a History and Physical was performed, and patient medications and allergies were reviewed. The patient is competent. The risks and benefits of the procedure and the sedation options and risks were discussed with the patient. All questions were answered and informed consent was obtained. Patient identification and proposed procedure were verified by the physician in the pre-procedure area. Mental Status Examination: alert and oriented. Airway Examination: normal oropharyngeal airway and neck mobility. Respiratory Examination: clear to auscultation. CV Examination: normal. Prophylactic Antibiotics: The patient does not require prophylactic antibiotics. Prior Anticoagulants: The patient has taken no previous anticoagulant or antiplatelet agents. ASA Grade Assessment: II - A patient with mild systemic disease. After reviewing the risks and benefits, the patient was deemed in satisfactory condition to undergo the procedure. The anesthesia plan was to use moderate sedation / analgesia (conscious sedation). Immediately prior to administration of medications, the patient was re-assessed for adequacy to receive sedatives. The heart rate, respiratory rate, oxygen saturations, blood pressure, adequacy of pulmonary ventilation, and response to care were monitored throughout the procedure. The physical status of the patient was re-assessed after the procedure. After obtaining informed consent, the endoscope was passed under direct vision. Throughout the procedure, the patient's blood pressure, pulse, and oxygen saturations were monitored continuously. The gastroscope was introduced through the mouth, and advanced to the second part of duodenum. The upper GI endoscopy was accomplished without difficulty. The patient tolerated the procedure well. Moderate Sedation: Moderate (conscious) sedation was administered by the endoscopy nurse and supervised by the endoscopist. The patient's oxygen saturation, heart rate, blood pressure and response to care were monitored. Total physician intraservice time was 15 minutes. Scope In: 9:30:29 AM Scope Out: 9:37:02 AM Total Procedure Duration Time 0 hours 6 minutes 33 seconds Findings: LA Grade C (one or more mucosal breaks continuous between tops of 2 or more mucosal folds, less than 75% circumference) esophagitis with no bleeding was found 36 to 40 cm from the incisors. Biopsies were taken with a cold forceps for histology. Verification of patient identification for the specimen was done. Estimated blood loss was minimal. Patchy mildly erythematous mucosa without bleeding was found at the pylorus. Biopsies were taken with a cold forceps for histology. Verification of patient identification for the specimen was done. Estimated blood loss was minimal. The second portion of the duodenum was normal. Biopsies were taken with a cold forceps for histology. Impression: - LA Grade C reflux esophagitis. Biopsied. - Erythematous mucosa in the pylorus. Biopsied. - Normal second portion of the duodenum. Biopsied. Recommendation: - Await pathology results. - No repeat upper endoscopy. - Return to GI office. - The patient has taken no previous anticoagulant or antiplatelet agents. Procedure Code(s): --- Professional --- 08883, Esophagogastroduodenoscopy, flexible, transoral; with biopsy, single or multiple G0500, Moderate sedation services provided by the same physician or other qualified health care director rn performing a gastrointestinal endoscopic service that sedation supports, requiring the presence of an independent trained observer to assist in the monitoring of the patient's level of consciousness and physiological status; initial 15 minutes of intra-service time; patient age 5 years or older (additional time may be reported with 10128, as appropriate) CPT copyright 2017 [employer]. All rights reserved. The codes documented in this report are preliminary and upon lap cutter truer operator review may be revised to meet current compliance requirements. Georges Prince DO 09/18/2021 9:42:35 AM This report has been signed electronically. Number of Addenda: 1 Note Initiated On: 09/18/2021 9:17 AM Addendum Number: 1 Addendum Date: 02/27/2022 6:31:34 AM MAC was used as sedation for this procedure. Georges Prince DO 02/27/2022 6:31:38 AM This report has been signed electronically.
[2021-09-18 09:45] VITALS: BP 117/84; BP 125/76; PULSE 88; RESP 16; TEMP 36.6; O2SAT 94
[2021-09-18 09:50] VITALS: BP 125/76; BP 126/76; PULSE 83; RESP 16; O2SAT 97
[2021-09-18 09:55] VITALS: BP 125/76; BP 132/82; PULSE 76; RESP 16; O2SAT 95
[2021-09-18 10:00] VITALS: BP 120/89; BP 125/76; PULSE 83; RESP 16; TEMP 36.3; O2SAT 96
[2021-09-18 10:16] VITALS: BP 125/76
== END 2021-09-18 23:59 | disposition home or self-care (01) ==
LOC: EN 08:17 → AC 08:19
PROVIDERS: PCP Internal Medicine; Referring Provider Internal Medicine; Visit Provider Internal Medicine Gastroenterology
PROC: 0DJ08ZZ Inspection of Upper Intestinal Tract, Via Natural or Artificial Opening Endoscopic (ICD-10-PCS; CPT 43235; principal; 2021-09-18 09:10)
DX: K21.00 Gastro-esophageal reflux disease with esophagitis, without bleeding (principal); K29.50 Unspecified chronic gastritis without bleeding; K58.9 Irritable bowel syndrome, unspecified; R16.2 Hepatomegaly with splenomegaly, not elsewhere classified
CPT/HCPCS: 43239; 88305; 88313; 88342; J7120; J2405